=== PATIENT | male | born 1980 | race Caucasian/White ===

== ENCOUNTER 2021-04-03 11:45 | Emergency (ER) | payer OTHER ==
[2021-04-03 13:20] LABS: CORONAVIRUS COVID-19 NAA NEGATIVE (NEGATIVE)
[2021-04-03] MEDS ORDERED: Ketorolac 30 MG/ML SDV IVPUSH ONE (13:47)
[2021-04-03] MEDS ORDERED: Sodium Chloride 0.9% 10 ML Syringe FLUSH PRN (13:48)
[2021-04-03] MEDS ORDERED: diphenhydrAMINE 50 MG/ML SDV IVPUSH ONE (13:48)
[2021-04-03] MEDS ORDERED: Prochlorperazine 10 MG/2 ML SDV IVPUSH ONE (13:48)
[2021-04-03] MEDS ORDERED: Sodium Chloride 0.9% 1,000 ML IV SCH (14:00)
[2021-04-03] MEDS ORDERED: Dexamethasone 4 MG/ML SDV IVPUSH ONE (15:09)
[2021-04-03] MEDS ORDERED: Haloperidol Lactate 5 MG/ML SDV IVPUSH ONE (15:09)
== END 2021-04-03 16:49 | disposition home or self-care (01) ==
LOC: JP.ED 11:45
DX: G43.909 Migraine, unspecified, not intractable, without status migrainosus (principal); Z20.822 Contact with and (suspected) exposure to COVID-19
CPT/HCPCS: 0241U; 36415; 80053; 83605; 85025; 86140; 96374; 96375; 99283; J0780; J1100; J1200; J1630; J1885; J7030

== ENCOUNTER 2023-10-10 11:51 | Emergency (ER) | payer OTHER | END 2023-10-10 13:38 | disposition home or self-care (01) | LOC: JP.ED 11:51 | DX: M25.561 Pain in right knee (principal) | CPT/HCPCS: 73562-26-RT; 73562-RT; 99283 ==

== ENCOUNTER 2025-01-05 08:33 | Emergency (ER) | payer OTHER | END 2025-01-05 09:14 | disposition home or self-care (01) | LOC: JP.ED 08:33 | DX: K04.7 Periapical abscess without sinus (principal); Z86.16 Personal history of COVID-19; Z79.899 Other long term (current) drug therapy | CPT/HCPCS: 99282 ==